=== PATIENT | female | born 1975 | race Caucasian/White ===

== ENCOUNTER 2017-01-07 10:12 | Emergency (ER) | payer MEDICAID ==
[~2017-01-07] VITALS: Ht 152.4 cm; Wt 59.0 kg
[2017-01-07] MEDS ORDERED: ONDANSETRON HCL 4MG/2ML VIAL IV PRN (10:45)
[2017-01-07] MEDS ORDERED: MORPHINE SULFATE 4 MG/ML CPJ (NOT FOR IM USE) IV PRN (10:45)
[2017-01-07] MEDS ORDERED: FENTANYL CITRATE/PF 50MCG/ML 2ML VIAL IV ONE (13:00)
[2017-01-07] MEDS ORDERED: PROPOFOL 200MG/20ML VIAL IV ONE (13:00)
[2017-01-07 16:49] VITALS: BP 121/70
== END 2017-01-07 16:55 | disposition home or self-care (01) ==
LOC: ER 10:12
DX: S53.104A Unspecified dislocation of right ulnohumeral joint, initial encounter (principal); W01.0XXA Fall on same level from slipping, tripping and stumbling without subsequent striking against object, initial encounter; Y93.89 Activity, other specified; Y99.8 Other external cause status; Y92.89 Other specified places as the place of occurrence of the external cause
CPT/HCPCS: 24600; 73070; 96374; 96375; 99152; 99285; J2270; J2405; J3010; Z7610; J2704